=== PATIENT | female | born 1955 | race Caucasian/White ===

== ENCOUNTER 2016-12-30 06:29 | Day surgery (SDC) | payer OTHER ==
[2016-12-30] VITALS (9 sets, daily range): BP systolic 107–144; BP diastolic 64–73; PULSE 72–85; RESP 14–21; Ht 149.9 cm; Wt 61.3 kg
[~2016-12-30] VITALS: Ht 149.9 cm; Wt 61.3 kg
[2016-12-30] MEDS ORDERED: POLYMYXIN/BACITRACIN 1L IRRIG IRR ONE (08:00)
[2016-12-30] MEDS ORDERED: SOD CHLORIDE 0.9% 1,000 ML IV SCH (08:00)
[2016-12-30] MEDS ORDERED: CEFAZOLIN 1 GM/50 ML (PMX) 50 ML IVPB ONE (08:00)
[2016-12-30] MEDS ORDERED: CEFAZOLIN 1 GM/50 ML (PMX) 0 ML IVPB ONE (09:23)
[2016-12-30] MEDS ORDERED: LIDOCAINE 2%/EPI 30 ML INJ ONE (09:24)
[2016-12-30] MEDS ORDERED: HEPARIN 1000 UNITS/ML 10 ML INJ ONE (09:24)
[2016-12-30] MEDS ORDERED: SOD CHLORIDE 0.9% 500 ML ONE (09:24)
[2016-12-30] MEDS ORDERED: MIDAZOLAM 1 MG/ML 2 ML INJ ONE (09:24)
[2016-12-30] MEDS ORDERED: FENTAnyl 50 MCG/ML VIAL ONE (09:24)
--- NOTE | 2016-12-30 11:40 | RADRPT ---
PROCEDURE: Ultrasound guidance for placement of needle in right internal jugular vein. CLINICAL INDICATION: Venous access. TECHNIQUE: Prior to the procedure, informed consent was obtained. Risks including bleeding, infection, and pneu mothorax were explained to the patient. The patient understood and was willing to proceed. A procedu ral pause was performed. The patient's name, date of , and procedure to be performed were verif ied. The central line was inserted with all elements of maximal sterile barrier technique. All of th e following were used: head covering, facial mask, sterile gown, sterile gloves, a large sterile she et, hand hygiene, and 2% chlorhexidine for cutaneous antisepsis. The right neck and anterior/super ior chest wall was prepped and draped in usual sterile fashion. Limited sonography of the right neck was then performed. Noted is a patent right internal jugular ve in. Ultrasound images were recorded and stored in the patient's medical record. Following the local injection of Xylocaine, the right internal jugular vein was punctured under sono graphic guidance with a 20-gauge needle through which a 0.018 inch floppy tip guidewire was advanced into the superior vena cava. The patient tolerated the procedure well. The remainder of the proce dure was performed and dictated under separate cover. COMPARISON: None. FINDINGS: The ultrasound images demonstrate a patent right internal jugular vein. The subsequent images demon strate the needle entering the right internal jugular vein. IMPRESSION: 1. Ultrasound guidance for a needle placement in right internal jugular vein. RPTAT: QQ .Brooks Mancera MD, Date Time Electronically viewed and signed by .Brooks Mancera MD, on 12/30/2016 11:39 .R/
--- NOTE | 2016-12-30 11:41 | RADRPT ---
PROCEDURE: FLUOROSCOPIC AND ULTRASONOGRAPHIC-GUIDED PLACEMENT OF RIGHT CHEST PORT. CLINICAL INDICATION: History of colorectal cancer. Venous access for chemotherapy. TECHNIQUE: INTRAPROCEDURE MEDICATIONS: PB antibiotic solution 40 cc applied topically. IV Versed and Fentanyl p er protocol. Informed consent was obtained. The procedure, risks, benefits, complications and alternatives were explained to the patient. Risks including bleeding, infection, and pneumothorax were explained. The patient understood and was willing to proceed. A procedural pause was performed. The patient's name , date of , and procedure to be performed were verified. The central line was inserted with al l elements of maximal sterile barrier technique. All of the following were used: head covering, faci al mask, sterile gown, sterile gloves, a large sterile sheet, hand hygiene, and 2% chlorhexidine fo r cutaneous antisepsis. The right neck and anterior/superior chest wall were prepped and draped in usual sterile fashion. Limited sonography of the right neck was then performed. Noted is a patent right internal jugular ve in. Following the local injection of 1% lidocaine, the right internal jugular vein was punctured under s onographic guidance with a 20-gauge needle through which a 0.018 inch floppy tip guidewire was advan marlin into the superior vena cava with fluoroscopic guidance. The tract was dilated to 5 German and the wire was then replaced with a 0.035 in Amplatz guidewire. Serial dilatation was then performed and a 7 German peel away sheath was introduced. A site just inferior to the clavicle in the superior anterior right chest wall was localized. One pe rcent lidocaine was used as local anesthesia. A transverse 2.5 cm incision was made utilizing a 15 b lade scalpel. Utilizing blunt dissection a subcutaneous pocket was created inferior to the incision. The cavity was flushed with approximately 40 cc of PB antibiotic solution. The catheter was tunneled underneath the skin from the newly created pocket to the puncture site in the neck. The central line catheter was pulled through the tract. The catheter was then advanced thr ough the sheath until the tip was positioned in the right atrium. The peel-away sheath was removed. The catheter was flushed and clamped. The 6.6 German catheter was then connected to the Angiodynamics power port. The port was then placed into the pocket. Prior to closing the instrument and sponge count was verified and was correct. The subcutaneous tissue was closed with 3-0 Vicryl interrupted suture. The skin at the site of the pock et and in the neck was closed with 4-0 Vicryl suture in a running subcuticular technique. The port w as flushed with 1500 units of heparin in 1.5 cc utilizing a Toro needle. The needle was removed. A dressing was applied. The patient tolerated procedure well. COMPARISON: None. FINDINGS: Ultrasound images were recorded and stored in the patient's medical record. Final radiographic images demonstrate the tip of the catheter in the upper right atrium. A total of 0.1 minutes of fluoroscopy time was used. 8 images of the chest were obtained with the [employer] Guide[employer]. The ultrasound images demonstrate the needle entering the internal jugular vein. IMPRESSION: 1. Successful ultrasonographic and fluoroscopic guided placement of right chest power port. RPTAT: QQ .Brooks Mancera MD, MD Date Time Electronically viewed and signed by .Brooks Mancera MD, on 12/30/2016 11:40 .R/
[2016-12-30] MEDS ORDERED: HYDROCODONE/APAP (5/325) TAB PO PRN (12:00)
[2016-12-30] MEDS ORDERED: ONDANSETRON 4 MG INJ IV STA (12:29)
[2016-12-30] MEDS ORDERED: ONDANSETRON 4 MG INJ IV SCH (12:33)
[2016-12-30] MEDS ORDERED: ONDANSETRON 4 MG INJ ONE (12:33)
== END 2016-12-30 14:00 | disposition home or self-care (01) ==
LOC: SDS 06:29
PROVIDERS: ATTEND Internal Medicine Hematology & Oncology
DX: C20 Malignant neoplasm of rectum (principal); Z92.3 Personal history of irradiation; E78.5 Hyperlipidemia, unspecified; E11.9 Type 2 diabetes mellitus without complications; K76.9 Liver disease, unspecified
CPT/HCPCS: 36561; 76937; 77001; C1788; J1644; J2250; J2405; J3010; J7040; Z7610; 76942; J0690

== ENCOUNTER 2017-08-17 06:39 | Emergency (ER) | END 2017-08-17 10:54 | disposition home or self-care (01) ==

== ENCOUNTER 2018-08-03 15:30 | Emergency (ER) | payer OTHER ==
[~2018-08-03] VITALS: Ht 152.4 cm; Wt 66.9 kg
[~2018-08-03 15:30] MED LIST: CAPE500T17 PO; ZOF8 PO
[2018-08-03 15:33] VITALS: Ht 152.4 cm; Wt 66.9 kg
[2018-08-03] MEDS ORDERED: ONDANSETRON 4 MG INJ IV STA (16:57)
[2018-08-03] MEDS ORDERED: SOD CHLORIDE 0.9% 500 ML IV STA (16:57)
[2018-08-03] MEDS ORDERED: HYDROmorphONE 1 MG/ML SYG IV STA (16:57)
--- NOTE | 2018-08-03 17:20 | ERD ---
ER Documentation Chief Complaint Chief Complaint abdominal pain; abdominal distention HPI During the patient's encounter translation services were utilized Language: [Syriac] Source: [video] 62-year-old female history of colorectal adenocarcinoma status post resection and chemotherapy who follows with Dr. Brito. The patient presents with 5 days of worsening abdominal pain and rectal pain that is 9 out of 10. Patient has good stool output through ostomy. No nausea or vomiting. Patient denies any fevers or chills. No chest pain or shortness of breath. ROS All systems reviewed and are negative except as per history of present illness. Medications Home Meds Reported Medications Capecitabine* (Xeloda*) 500 Mg Tablet, 500 MG PO BID, TAB 08/03/18 Discontinued Reported Medications Capecitabine* (Xeloda*) 500 Mg Tablet, 500 MG PO BID for 14 Days, TAB off for 7 days 08/17/17 Discontinued Scripts Ondansetron Hcl* (Zofran*) 8 Mg Tab, 8 MG PO Q6H PRN for NAUSEA AND OR VOMITING, #20 TAB Prov:CEASAR FLORENTINO MD 08/17/17 Allergies Allergies: Coded Allergies: No Known Allergy (Unverified , 08/03/18) PMhx/Soc History of Surgery: Yes ( C SECTION X2, APPENDECTOMY, partial colectomy and colostomy) Anesthesia Reaction: No Hx Neurological Disorder: No Hx Respiratory Disorders: No Hx Cardiac Disorders: Yes (HLD) Hx Psychiatric Problems: No Hx Miscellaneous Medical Probl: Yes (Rectal cancer) Hx Alcohol Use: No Hx Substance Use: No Hx Tobacco Use: No FmHx Family History: No diabetes Physical Exam Vitals Vital Signs Date Temp Pulse Resp B/P (MAP) Pulse Ox O2 O2 Flow FiO2 Time Delivery Rate 08/03/18 98.9 101 18 143/87 96 15:33 (105) Physical Exam General: Uncomfortable and tearful Head: Normocephalic, atraumatic. Eyes: Pupils equally reactive, EOM intact ENT: Moist mucous membranes Neck: Supple, no lymphadenopathy Respiratory: Lungs clear bilaterally, no distress Cardiovascular: RRR, no murmurs, rubs, or gallops Abdominal: Soft, voluntary guarding, tenderness to left lower quadrant, ostomy without stool within the bag. : Deferred MSK: No edema, no unilateral swelling, 5/5 strength Neurologic: Alert and oriented, moving all extremities, normal speech, no focal weakness, no cerebellar signs Skin: No rash Psych: Normal mood Result Diagram: 08/03/18 1730 08/03/18 1730 Results 24 hrs Laboratory Tests Test 08/03/18 17:30 White Blood Count 4.4 10^3/ul Red Blood Count 4.38 10^6/ul Hemoglobin 13.9 g/dl Hematocrit 42.1 % Mean Corpuscular Volume 96.1 fl Mean Corpuscular Hemoglobin 31.7 pg Mean Corpuscular Hemoglobin Concent 33.0 g/dl Red Cell Distribution Width 15.7 % Platelet Count 262 10^3/UL Mean Platelet Volume 10.2 fl Immature Granulocytes % 0.000 % Neutrophils % 63.1 % Lymphocytes % 21.3 % Monocytes % 13.1 % Eosinophils % 1.8 % Basophils % 0.7 % Nucleated Red Blood Cells % 0.0 /100WBC Immature Granulocytes # 0.000 10^3/ul Neutrophils # 2.8 10^3/ul Lymphocytes # 0.9 10^3/ul Monocytes # 0.6 10^3/ul Eosinophils # 0.1 10^3/ul Basophils # 0.0 10^3/ul Nucleated Red Blood Cells # 0.0 10^3/ul Sodium Level 143 mmol/L Potassium Level 3.9 mmol/L Chloride Level 106 mmol/L Carbon Dioxide Level 27 mmol/L Anion Gap 10 Blood Urea Nitrogen 12 mg/dl Creatinine 0.70 mg/dl Est Glomerular Filtrat Rate mL/min > 60 mL/min Glucose Level 138 mg/dl Calcium Level 9.8 mg/dl Total Bilirubin 0.8 mg/dl Direct Bilirubin 0.00 mg/dl Indirect Bilirubin 0.8 mg/dl Aspartate Amino Transf (AST/SGOT) 28 IU/L Alanine Aminotransferase (ALT/SGPT) 13 IU/L Alkaline Phosphatase 227 IU/L Total Protein 7.6 g/dl Albumin 4.1 g/dl Globulin 3.50 g/dl Albumin/Globulin Ratio 1.17 Lipase 76 U/L Current Medications Medications Dose Sig/Jorge Start Time Status Last (Trade) Ordered Route PRN Stop Time Admin Dose Reason Admin Sodium 500 ml @ Q1H STAT 08/03/18 DC 08/03/18 Chloride 500 mls/hr IV 16:57 17:25 08/03/18 17:56 1 mg ONCE STAT 08/03/18 DC 08/03/18 Hydromorphone IV 16:57 17:25 HCl 08/03/18 16:58 (Dilaudid) Ondansetron 4 mg ONCE STAT 08/03/18 DC 08/03/18 HCl (Zofran IV 16:57 17:25 Inj) 08/03/18 16:58 Procedures/MDM EKG, MONITORS, & DIAGNOSTIC IMAGING: CT abdomen and pelvis: IMPRESSION: Left lower quadrant ostomy with a large hernia noted underlying the containing small and large bowel.. Moderate colonic stool with no free air or ascites noted, cannot rule out fecal impaction. RPTAT: AAOO LAB INTERPRETATION: I reviewed the laboratory testing and it shows [no evidence of acute process] MEDICAL DECISION MAKING: Patient presents with abdominal pain in the setting of colorectal cancer, surgery. The patient is at risk for bowel obstruction, hernia, recurrence or worsening of malignancy. Laboratory testing and CT imaging are absolutely necessary. I will reach out to the patient's surgeon Dr. Brito as well. Patient will benefit from IV fluids and pain control medication. ER COURSE: * Patient was given IV fluids and Dilaudid and is now asymptomatic resting comfortably with repeat exam that is improved. * I discussed the case with Dr. Brito. We discussed the imaging. He states that this appears to be consistent with chronic issues for the patient. He states that a bowel regimen will be the most appropriate. * At this point the patient does not meet any criteria for inpatient hospitalization. Pain is well controlled. Repeat abdominal exam is improved. The patient is to follow-up with her primary care physician. She was advised that she needs to get a better understanding of her prognosis and what to expect regarding pain and treatment plan. * The patient will be started on a bowel regimen. I do not believe that initiation of narcotic medication will be in her benefit. CONSULTATION: General surgeon, Dr. Brito DISPOSITION PLAN: The patient does not have an identifiable emergent medical condition that warrants inpatient hospitalization at this time. The patient is deemed safe for discharge with outpatient follow-up. We discussed follow up with the patient's primary care doctor within 24 to 48 hours as needed. We also discussed return to the emergency room for worsening symptoms or worsening condition. Outpatient referral: [None required] Discharge Medications: MiraLAX Magnesium citrate Departure Diagnosis: Primary Impression: Abdominal pain Abdominal location: left lower quadrant Qualified Codes: R10.32 - Left lower quadrant pain Additional Impressions: Constipation Constipation type: unspecified constipation type Qualified Codes: K59.00 - Constipation, unspecified History of colorectal cancer Condition: RAJAN Veras MD August 03, 2018 17:20
[2018-08-03] MEDS ORDERED: CAPE500T17 PO (17:53)
[2018-08-03] MEDS ORDERED: POLY17PO6 PO (18:48)
[2018-08-03] MEDS ORDERED: MAGN296S40 PO (18:48)
[2018-08-03] MEDS ORDERED: ONDANSETRON (ODT) 4 MG TAB ODT STA (18:57)
[2018-08-03 19:32] VITALS: BP 137/83; PULSE 77; RESP 20
== END 2018-08-03 19:33 | disposition home or self-care (01) ==
LOC: E/R 15:30
DX: K59.00 Constipation, unspecified (principal); Z85.038 Personal history of other malignant neoplasm of large intestine
CPT/HCPCS: 36415; 74176; 80053; 83690; 85025; 96374; 96375; 99285; J1170; J2405; J7040